=== PATIENT | female | born 1990 | race Caucasian/White ===

== ENCOUNTER 2017-08-05 01:12 | Emergency (ER) | payer SELFPAY ==
[~2017-08-05] VITALS: Ht 160 cm; Wt 61.2 kg
[~2017-08-05 01:12] MED LIST: ACET500 PO; ALBU3IS INH; ALBU4 PO; ALBU90OI INH; ALBUTEROL INH; METHYLPREDNISOLONE INH; Prednisone20 MG PO; Symbyax 12-251 EACH PO
[2017-08-05] MEDS ORDERED: Prednisone20 MG PO (03:11)
[2017-08-05] MEDS ORDERED: ALBU90OI INH (03:11)
== END 2017-08-05 03:20 | disposition home or self-care (01) ==
LOC: ER 01:12
DX: J45.901 Unspecified asthma with (acute) exacerbation (principal); F17.200 Nicotine dependence, unspecified, uncomplicated; Z79.899 Other long term (current) drug therapy; Z91.09 Other allergy status, other than to drugs and biological substances
CPT/HCPCS: 94644; 99283; J1100